=== PATIENT | male | born 1975 | race African-American/Black ===

== ENCOUNTER 2017-11-22 13:09 | Emergency (ER) | payer SELFPAY ==
[2017-11-22] MEDS ORDERED: DIPHENHYDRAMINE HCL 50 MG/ML VIAL IM ONE (13:45)
--- NOTE | 2017-11-22 13:47 | ER Document Report ---
ED Medical Screen (RME) - General Chief Complaint: Dizziness Stated Complaint: DIZZINESS Time Seen by Provider: 11/22/17 13:43 Notes: 42-year-old male patient reports one hour ago onset of severe dizziness. At this point he is laying on the floor the exam room. He does have significant nystagmus noted. He notes it possibly feels better laying on his left side with his face down and eyes closed. There is been no vomiting. There is no pain anywhere associated with this. He will be given an injection of Compazine and Benadryl while he is waiting for a room in the pain ED. - Related Data Allergies/Adverse Reactions: No Known Allergies Allergy (Verified 11/22/17 13:12) Past Medical History - Social History Chew tobacco use (# tins/day): No Frequency of alcohol use: None Drug Abuse: Marijuana Pulmonary Medical History: Reports: Hx Asthma Renal/ Medical History: Denies: Hx Peritoneal Dialysis Physical Exam - Vital signs Vitals: Temp Pulse Resp BP Pulse Ox 98.4 F 94 16 128/75 H 100 11/22/17 13:13 11/22/17 13:13 11/22/17 13:13 11/22/17 13:13 11/22/17 13:13 Course - Vital Signs Vital signs: Temp Pulse Resp BP Pulse Ox 98.4 F 94 16 128/75 H 100 11/22/17 13:13 11/22/17 13:13 11/22/17 13:13 11/22/17 13:13 11/22/17 13:13
--- NOTE | 2017-11-22 14:31 | ER Document Report ---
ED Dizziness/Weakness - General Chief Complaint: Dizziness Stated Complaint: DIZZINESS Time Seen by Provider: 11/22/17 13:43 Notes: Patient states he has not felt well for a few days. Has been drinking a lot of water. Was watching TV and went to stand up and his head was spinning. [place] like he was going to pass out. Every time he was moving his head he felt more dizzy. Everything was spinning. If he lies on his left side seems to make it better. Has any fever, chills, sweats. No chest pain, abdominal pain. No rash. No severe headache. No weakness of the upper lower extremities. No abnormal numbness. No prior history of diabetes. No prior history of heart problems. There is a family history of diabetes. Patient denies any excessive thirst or excessive urination. - HPI Patient complains to provider of: Dizziness, Vertigo Onset: Just prior to arrival Onset/Duration: Better Quality of pain: No pain Severity: Severe Pain Level: 0 Context: Vertigo Associated symptoms: Lightheaded, Nausea Exacerbated by: Change in position, Movement of head - Related Data Allergies/Adverse Reactions: No Known Allergies Allergy (Verified 11/22/17 13:12) Past Medical History - General Information source: Patient - Social History Smoking Status: Current Every Day Smoker Chew tobacco use (# tins/day): No Frequency of alcohol use: None Drug Abuse: Marijuana Lives with: Spouse/Significant other Family History: DM Patient has suicidal ideation: No Patient has homicidal ideation: No Pulmonary Medical History: Reports: Hx Asthma Renal/ Medical History: Denies: Hx Peritoneal Dialysis Review of Systems - Review of Systems Constitutional: denies: Fever, Malaise, Weakness EENT: denies: Eye pain, Eye discharge, Blurred vision, Ear pain, Nose congestion , Sinus pressure, Sinus discharge, Throat pain, Difficulty swallowing Respiratory: denies: Cough, Hurts to breathe, Short of breath, Wheezing Gastrointestinal: denies: Abdomen distended, Diarrhea, Nausea, Vomiting Genitourinary: denies: Dysuria, Flank pain, Retention Musculoskeletal: denies: Back pain, Joint pain, Muscle pain Skin: denies: Change in color, Lesions, Rash Neurological/Psychological: denies: Confusion, Depression, Hallucinations, Weakness, Paralysis, Seizure, Lost consciousness, Headaches, Numbness Physical Exam - Vital signs Vitals: Temp Pulse Resp BP Pulse Ox 98.4 F 94 16 128/75 H 100 11/22/17 13:13 11/22/17 13:13 11/22/17 13:13 11/22/17 13:13 11/22/17 13:13 Interpretation: Normal - HEENT Head: Normocephalic, Atraumatic Eyes: Normal Extraocular movements intact: Yes - No obvious nystagmus noted. Pupils: PERRL Nasal: Normal Mucous membranes: Normal Pharynx: Normal Neck: Normal. No: Brudzinski, Carotid bruit, Kernig's, Lymphadenopathy - Respiratory Respiratory status: No respiratory distress Chest status: Nontender Breath sounds: Normal Chest palpation: Normal - Cardiovascular Rhythm: Regular Heart sounds: Normal auscultation Murmur: No - Abdominal Inspection: Normal Distension: No distension Bowel sounds: Normal Tenderness: Nontender Organomegaly: No organomegaly - Neurological Neuro grossly intact: Yes Cognition: Normal Orientation: AAOx4 Danielle Coma Scale Eye Opening: Spontaneous [place] Coma Scale Verbal: Oriented [place] Coma Scale Motor: Obeys Commands Danielle Coma Scale Total: 15 Speech: Normal Motor strength normal: LUE, RUE, LLE, RLE Sensory: Normal Course - Re-evaluation Re-evalutation: 11/22/17 14:52 This is a well-appearing fit 42-year-old male in no acute distress. Symptoms were resolved after he received a shot of Benadryl at triage. States he feels 100% better. Will check his blood sugar and get an EKG. Based on my initial questioning highly possible patient experiencing some vertigo. I have encouraged him to increase his hydration. Sivakumar a picture of what the inner ear looks like and described to him what vertigo is as well as otolith 11/22/17 15:17 Patient with sinus bradycardia with a heart rate of 48 but patient is extremely fit looking. Heart rate responds appropriately. Patient had received some i.m. dose of Benadryl. Blood sugars 107. At this time I feel comfortable discharging. We will write him a prescription for for meclizine. - Vital Signs Vital signs: Temp Pulse Resp BP Pulse Ox 98.4 F 94 16 128/75 H 100 11/22/17 13:13 11/22/17 13:13 11/22/17 13:13 11/22/17 13:13 11/22/17 13:13 - EKG Interpretation by Nm EKG shows normal: Sinus rhythm, [place], Intervals, QRS Complexes, ST-T Waves Rate: Bradycardia Discharge - Discharge Clinical Impression: Benign positional vertigo Qualifiers: Laterality: left Qualified Code(s): H81.12 - Benign paroxysmal vertigo, left ear Disposition: HOME, SELF-CARE Instructions: Dizziness ([facility]), Meclizine ([facility]), Vertigo ([facility]) Prescriptions: Meclizine HCl 25 mg PO TID PRN #20 tab.chew PRN Reason:
[2017-11-22 15:44] VITALS: BP 107/68
--- NOTE | 2017-11-24 11:59 | EKG REPORT ---
SEVERITY:- OTHERWISE NORMAL ECG - SLOW SINUS ARRHYTHMIA, RATE 39-54 : Confirmed by: Tammie Lopez MD 24-Nov-2017 11:58:09
== END 2017-11-22 15:39 | disposition home or self-care (01) ==
LOC: ER 13:09
DX: H81.12 Benign paroxysmal vertigo, left ear (principal); F17.200 Nicotine dependence, unspecified, uncomplicated
CPT/HCPCS: 93005; 99284; 96372; 82962; 93010; J1200

== ENCOUNTER 2017-12-17 10:05 | Emergency (ER) | payer SELFPAY ==
[2017-12-17 10:12] VITALS: BP 117/75
--- NOTE | 2017-12-17 10:51 | ER Document Report ---
ED General - General Chief Complaint: Vertigo Stated Complaint: DIZZINESS Time Seen by Provider: 12/17/17 10:29 Notes: Patient presents with onset of vertigo symptoms upon waking this morning. States that he felt like the room was spinning when he woke up. He took one meclizine as this has happened in the past and it did not help the symptoms. He took a second meclizine prior to coming to the emergency department and he is now asymptomatic in the emergency department. He denies any recent traumas falls. He does not take any medications on a daily basis and has no known medical problems. Denies any recent traumas or falls denies any recent upper respiratory infections or illnesses. Patient is well-appearing in the emergency department and pleasant TRAVEL OUTSIDE OF THE [place] IN LAST 30 DAYS: No - Related Data Allergies/Adverse Reactions: No Known Allergies Allergy (Verified 12/17/17 10:07) Past Medical History - Social History Smoking Status: Current Every Day Smoker Chew tobacco use (# tins/day): No Frequency of alcohol use: None Drug Abuse: Marijuana Family History: DM Patient has suicidal ideation: No Patient has homicidal ideation: No Pulmonary Medical History: Reports: Hx Asthma Renal/ Medical History: Denies: Hx Peritoneal Dialysis Review of Systems - Review of Systems Constitutional: No symptoms reported, Other - Dizziness EENT: No symptoms reported, Vertigo Cardiovascular: No symptoms reported Respiratory: No symptoms reported Gastrointestinal: No symptoms reported Genitourinary: No symptoms reported Male Genitourinary: No symptoms reported Musculoskeletal: No symptoms reported Skin: No symptoms reported Hematologic/Lymphatic: No symptoms reported Neurological/Psychological: No symptoms reported Physical Exam - Vital signs Vitals: Temp Pulse Resp BP Pulse Ox 97.9 F 85 16 117/75 100 12/17/17 10:10 12/17/17 10:10 12/17/17 10:10 12/17/17 10:10 12/17/17 10:10 - General General appearance: Appears well In distress: None - HEENT Head: Normocephalic, Atraumatic Eyes: Normal Cornea: Normal Extraocular movements intact: Yes - Respiratory Respiratory status: No respiratory distress Chest status: Nontender Breath sounds: Normal - Cardiovascular Rhythm: Regular Heart sounds: Normal auscultation - Abdominal Inspection: Normal - Back Back: Normal - Extremities General upper extremity: Normal inspection - Neurological Neuro grossly intact: Yes Cognition: Normal Orientation: AAOx4 Danielle Coma Scale Eye Opening: Spontaneous Danielle Coma Scale Verbal: Oriented [place] Coma Scale Motor: Obeys Commands Danielle Coma Scale Total: 15 Speech: Normal Cranial nerves: Normal, Other - No nystagmus Cerebellar coordination: Normal, Other - Finger to nose rapid alternating movements Romberg negative normal gait Motor strength normal: LUE, RUE, LLE, RLE Additional motor exam normals: Equal clinical professor - Psychological Associated symptoms: Normal affect Course - Re-evaluation Re-evalutation: 12/17/17 10:49 Patient well-appearing with grossly normal neurologic exam. Patient symptoms have resolved while coming to the emergency department after taking second meclizine. Patient only has 1 tablet left. Will provide community care referral and refill of meclizine if symptoms return. Return precautions provided - Vital Signs Vital signs: Temp Pulse Resp BP Pulse Ox 97.9 F 85 16 117/75 100 12/17/17 10:10 12/17/17 10:10 12/17/17 10:10 12/17/17 10:10 12/17/17 10:10 Discharge - Discharge Clinical Impression: BPPV (benign paroxysmal positional vertigo) Qualifiers: Laterality: unspecified laterality Qualified Code(s): H81.10 - Benign paroxysmal vertigo, unspecified ear Condition: Good Disposition: HOME, SELF-CARE Instructions: Vertigo ([facility]) Prescriptions: Meclizine HCl 25 mg PO TID PRN #30 tablet PRN Reason:
== END 2017-12-17 11:18 | disposition home or self-care (01) ==
LOC: ER 10:05
DX: H81.10 Benign paroxysmal vertigo, unspecified ear (principal); F17.200 Nicotine dependence, unspecified, uncomplicated
CPT/HCPCS: 99283